=== PATIENT | female | born 1995 | race Caucasian/White ===

== ENCOUNTER 2023-09-13 19:38 | Emergency (ER) | payer MEDICAID ==
[~2023-09-13] VITALS: Ht 165.1 cm; Wt 74.0 kg
[2023-09-13 19:47] VITALS: BP 137/90; PULSE 105; RESP 18; TEMP 98.7; O2SAT 100
[2023-09-13 21:52] LABS: THYROID STIMULATING HORMONE 0.56 uIU/mL (0.55-4.78)
== END 2023-09-13 22:19 | disposition home or self-care (01) ==
LOC: ER 19:38
DX: H57.12 Ocular pain, left eye (principal); F41.1 Generalized anxiety disorder; J45.909 Unspecified asthma, uncomplicated
CPT/HCPCS: 36415; 81025; 84443; 84481; 99283

== ENCOUNTER 2023-09-28 18:29 | Emergency (ER) | payer MEDICAID ==
[~2023-09-28] VITALS: Ht 165.1 cm; Wt 72.6 kg
[2023-09-28 18:33] VITALS: BP 110/75; PULSE 70; RESP 16; TEMP 98.2; O2SAT 99
== END 2023-09-29 01:14 | disposition home or self-care (01) ==
LOC: ER 18:29
DX: R51.9 Headache, unspecified (principal); J45.909 Unspecified asthma, uncomplicated; Z98.890 Other specified postprocedural states
CPT/HCPCS: 81025; 99284

== ENCOUNTER 2023-11-05 00:37 | Emergency (ER) | payer MEDICAID ==
[~2023-11-05] VITALS: Ht 337.8 cm; Wt 73.0 kg
[2023-11-05 00:47] VITALS: BP 125/92; PULSE 71; RESP 18; TEMP 97.8; O2SAT 100
[2023-11-05] MEDS ORDERED: CHLO3800 TP (01:24)
[2023-11-05] MEDS ORDERED: LIDO5JEL8 TP (01:24)
[2023-11-05] MEDS ORDERED: DOXY100T2 MT (01:24)
[2023-11-05] MEDS: CEFTRIAXONE SODIUM 500MG VIAL IM ONE (02:42)
[2023-11-06] MEDS ORDERED: DIPH-907 MT (05:47)
[2023-11-06] MEDS ORDERED: NYST15PO4 TP (05:47)
[2023-11-06] MEDS ORDERED: DOXY100T2 MT (05:47)
== END 2023-11-05 02:48 | disposition home or self-care (01) ==
LOC: ER 00:37
DX: K12.1 Other forms of stomatitis (principal); Z20.2 Contact with and (suspected) exposure to infections with a predominantly sexual mode of transmission
CPT/HCPCS: 99283; 86592; 81025; 36415; 96372; J0696

== ENCOUNTER → 2023-11-06 | Emergency (ER) | payer MEDICAID ==
[~2023-11-06] VITALS: Ht 165.1 cm; Wt 75.0 kg
[~2023-11-06] MED LIST: ACETAMINOPHEN 325MG TABLET PO ONE; CHLO3800 TP; DIPH-907 MT; DOXY100T2 MT; LIDO5JEL8 TP; NYST15PO4 TP
[2023-11-06 02:51] VITALS: O2SAT 100
[2023-11-06] MEDS: CEFTRIAXONE SODIUM 500MG VIAL IM ONE (07:59)
[2023-11-06] MEDS: ACETAMINOPHEN 325MG TABLET PO NR (08:00)
[2023-11-06] MEDS: DOXYCYCLINE HYCLATE 100MG CAPSULE PO ONE (08:05)
[2023-11-06 10:44] VITALS: BP 100/60; PULSE 80; RESP 20; TEMP 98
== END ==
LOC: ER 02:47
DX: K12.1 Other forms of stomatitis (principal); F41.9 Anxiety disorder, unspecified; Z98.890 Other specified postprocedural states
CPT/HCPCS: 99283; 96372; J0696